=== PATIENT | male | born 1985 | race Caucasian/White ===

== ENCOUNTER 2019-01-16 18:00 | Emergency (ER) | payer OTHER ==
[2019-01-16] MEDS ORDERED: ALPRAZOLAM1 MG PO (18:46)
[2019-01-16 19:17] VITALS: BP 135/99
== END 2019-01-16 19:22 | disposition home or self-care (01) ==
LOC: ED 18:00
DX: T65.94XA Toxic effect of unspecified substance, undetermined, initial encounter (principal); H10.213 Acute toxic conjunctivitis, bilateral

== ENCOUNTER → 2020-06-07 | Outpatient (CLI) | payer BC ==
[~2020-06-07] MED LIST: ALPRAZOLAM1 MG PO
== END ==
LOC: RAD 09:07
DX: M25.512 Pain in left shoulder (principal)

== ENCOUNTER → 2024-06-26 | Outpatient (RCR) | payer BC | LOC: PT | DX: M75.52 Bursitis of left shoulder (principal); M75.122 Complete rotator cuff tear or rupture of left shoulder, not specified as traumatic; S46.112D Strain of muscle, fascia and tendon of long head of biceps, left arm, subsequent encounter; Z98.890 Other specified postprocedural states; X58.XXXD Exposure to other specified factors, subsequent encounter ==